=== PATIENT | male | born 1985 | race Caucasian/White ===

== ENCOUNTER 2022-11-09 07:37 | Outpatient (CLI) | payer OTHER ==
--- NOTE | 2022-11-09 11:50 | MRI Report ---
PROCEDURE: CERVICAL SPINE WO INDICATIONS: CERVICAL ROOT DISORDERS TECHNIQUE: Noncontrast sagittal T1 spin echo and T2 fast spin echo, sagittal STIR, foraminal oblique sagittal T2 fast spin echo, and axial gradient echo or T2 fast spin echo through the cervical spine. COMPARISON: None. FINDINGS: Image quality: Excellent. Alignment and Curvature: There is normal bony alignment. Bone Marrow: Marrow demonstrates normal overall signal. Spinal Cord: Visualized spinal cord has normal size and signal. No cerebellar tonsillar herniation. Paraspinous Soft Tissues: No paravertebral masses. Prevertebral soft tissues are normal in thicknes s. C2-C3: Normal in appearance. C3-C4: Normal in appearance. C4-C5: Disk height is maintained. Small 2 mm central protrusion touches the ventral cervical cord wi thout cord indentation or cord edema. Mild central and no foraminal stenosis. C5-C6: Normal in appearance. C6-C7: Normal in appearance. C7-T1: Normal in appearance. IMPRESSION: 1. Small central protrusion at C4-5 with mild central stenosis. Reviewed by: Dada Dudley MD on 11/09/2022 10:49 AM [facility] Approved by: Dada Dudley MD on 11/09/2022 10:49 AM [facility] Station ID: [id number]
== END 2022-11-09 07:38 | disposition home or self-care (01) ==
LOC: DI 07:37
DX: M50.221 Other cervical disc displacement at C4-C5 level (principal); M48.02 Spinal stenosis, cervical region

== ENCOUNTER 2022-12-13 21:54 | Emergency (ER) | payer OTHER ==
[2022-12-13 22:14] VITALS: BP 117/87
[2022-12-13 22:31] LABS: BASOPHILS % (AUTO) 0.2 %; EOSINOPHILS # (AUTO) 0.1 10^3/uL (0.0-0.7); EOSINOPHILS % (AUTO) 1.7 %; HCT - HEMATOCRIT 41.1 % (42.0-52.0); HGB - HEMOGLOBIN 13.2 g/dL (14.0-18.0); LYMPHOCYTES # (AUTO) 1.6 10^3/uL (1.5-3.5); LYMPHOCYTES % (AUTO) 26.7 %; MEAN CORPUSCULAR HEMOGLOBIN 28.5 pg (27.0-31.0); MEAN CORPUSCULAR HGB CONC 32.1 g/dL (32.0-36.0); MEAN CORPUSCULAR VOLUME 88.8 fL (80.0-94.0); MEAN PLATELET VOLUME 11.2 fL (7.4-11.4); MONOCYTES # (AUTO) 0.4 10^3/uL (0.0-1.0); MONOCYTES % (AUTO) 6.8 %; NEUTROPHILS # (AUTO) 3.9 10^3/uL (1.5-6.6); NEUTROPHILS % (AUTO) 64.4 %; PLT - PLATELET COUNT 193 10^3/uL (130-450); RED BLOOD COUNT 4.63 10^6/uL (4.70-6.10); RED CELL DISTRIBUTION WIDTH 12.6 % (12.0-15.0)
[2022-12-13 22:45] LABS: ALBUMIN 4.4 g/dL (3.2-5.5); ALBUMIN/GLOBULIN RATIO 1.5 (1.0-2.2); BILIRUBIN,TOTAL 0.5 mg/dL (0.2-1.0); CALCIUM 8.9 mg/dL (8.5-10.3); CREATININE 0.9 mg/dL (0.6-1.2); POTASSIUM 3.6 mmol/L (3.5-5.0); TOTAL PROTEIN 7.4 g/dL (6.7-8.2)
[2022-12-13 22:56] LABS: BILIRUBIN,URINE NEGATIVE (NEGATIVE); GLUCOSE, URINE (UA) NEGATIVE (NEGATIVE); KETONES,URINE (UA) NEGATIVE (NEGATIVE); LEUKOCYTE ESTERASE, URINE NEGATIVE (NEGATIVE); NITRITE,URINE NEGATIVE (NEGATIVE); OCCULT BLOOD,URINE NEGATIVE (NEGATIVE); PROTEIN,URINE NEGATIVE (NEGATIVE); UROBILINOGEN,URINE 0.2 (NORMAL) E.U./dL (NORMAL)
[2022-12-13 22:57] LABS: CLARITY,URINE CLEAR (CLEAR)
[2022-12-14] MEDS ORDERED: MECLIZINE 12.5 MG TABLET PO STA (00:01)
--- NOTE | 2022-12-14 00:07 | ED Physician Documentation ---
History of Present Illness - Stated complaint Stated Complaint: DIZZY,SWEATY,D/V - Chief complaint Chief Complaint: Cardiac - History obtained from History obtained from: Patient - Additonal information Additional information: The patient comes to the emergency department chief complaint of sudden onset of vertigo. States this started about 2 hours ago. He became very nauseated and was vomiting. He states he was walking around like a drunk person, but was not intoxicated. It was much worse if he turned his head from side to side. The patient states he is feeling quite a bit better now. This has never happened to him before. Review of Systems Constitutional: reports: Reviewed and negative Eyes: reports: Reviewed and negative Ears: reports: Reviewed and negative Nose: reports: Reviewed and negative Throat: reports: Reviewed and negative Cardiac: reports: Reviewed and negative Respiratory: reports: Reviewed and negative GI: reports: Nausea, Vomiting : reports: Reviewed and negative Skin: reports: Reviewed and negative Musculoskeletal: reports: Reviewed and negative Neurologic: reports: Reviewed and negative Psychiatric: reports: Reviewed and negative Endocrine: reports: Reviewed and negative Immunocompromised: reports: Reviewed and negative PD PAST MEDICAL HISTORY - Past Medical History Cardiovascular: None Respiratory: None Endocrine/Autoimmune: None GI: Other : None HEENT: None Psych: None Musculoskeletal: None Derm: None - Past Surgical History Past Surgical History: No General: Colonoscopy - Present Medications Home Medications: Ambulatory Orders Medication Instructions Recorded Confirmed Fluticasone [Flonase] 1 spray INH DAILY 09/19/15 09/27/15 Meclizine HCl [Motion Sickness] 25 mg PO Q6H PRN #20 tablet 12/14/22 Ondansetron Odt [Zofran] 4 mg TL Q6H PRN #10 tablet 12/14/22 - Allergies Allergies/Adverse Reactions: Allergies Allergy/AdvReac Type Severity Reaction Status Date / Time No Known Drug Allergies Allergy Verified 09/27/15 08:34 - Social History Does the pt smoke?: No Smoking Status: Never smoker PD ED PE NORMAL - Vitals Vital signs reviewed: Yes - General General: Alert and oriented X 3, No acute distress, Well developed/nourished - HEENT HEENT: Atraumatic, PERRL, EOMI, Moist mucous membranes - Neck Neck: Supple, no meningeal sign - Cardiac Cardiac: RRR, No murmur, Strong equal pulses - Respiratory Respiratory: No respiratory distress, Clear bilaterally - Abdomen Abdomen: Soft, Non tender, Non distended - Derm Derm: Normal color, Warm and dry, No rash - Extremities Extremities: No deformity - Neuro Neuro: Alert and oriented X 3 - Psych Psych: Normal mood, Normal affect Results - Vitals Vitals: Oxygen O2 Source Room air - Labs Labs: Laboratory Tests 12/13/22 12/13/22 12/13/22 22:27 22:27 22:47 WBC 6.0 RBC 4.63 L Hgb 13.2 L Hct 41.1 L MCV 88.8 MCH 28.5 MCHC 32.1 RDW 12.6 Plt Count 193 MPV 11.2 Neut # (Auto) 3.9 Lymph # (Auto) 1.6 Patrick # (Auto) 0.4 Eos # (Auto) 0.1 Baso # (Auto) 0.0 Absolute Nucleated RBC 0.00 Nucleated RBC % 0.0 Sodium 136 Potassium 3.6 Chloride 97 L Carbon Dioxide 30 Anion Gap 9.0 BUN 30 H Creatinine 0.9 Estimated GFR (MDRD) 95 Glucose 107 H Calcium 8.9 Total Bilirubin 0.5 AST 23 ALT 42 Alkaline Phosphatase 42 Total Protein 7.4 Albumin 4.4 Globulin 3.0 Albumin/Globulin Ratio 1.5 Lipase 47 Urine Color YELLOW Urine Clarity CLEAR Urine pH 6.0 Ur Specific Broussard 1.025 Urine Protein NEGATIVE Urine Glucose (UA) NEGATIVE Urine Ketones NEGATIVE Urine Occult Blood NEGATIVE Urine Nitrite NEGATIVE Urine Bilirubin NEGATIVE Urine Urobilinogen 0.2 (NORMAL) Ur Leukocyte Esterase NEGATIVE Ur Microscopic Review NOT INDICATED Urine Culture Comments NOT INDICATED PD Medical Decision Making - ED course Complexity details: reviewed results, re-evaluated patient, considered differential, d/w patient ED course: The patient was quite well-appearing in the emergency department when I evaluated him and was feeling much better. He was worked up with laboratory studies including CBC and ER abdominal panel, both of which were unremarkable. I discussed with the patient that his symptoms are most consistent with benign positional vertigo. He has responded well to meclizine and fluids and Zofran in the emergency department. I discussed symptomatic management at home with the patient, including taking meclizine as needed. I have given him prescriptions for both this and Zofran. We have discussed the usual indications for follow-up and return. Departure - Departure Disposition: Home, Self Care Clinical Impression: Benign positional vertigo Qualifiers: Laterality: unspecified laterality Qualified Code(s): H81.10 - Benign paroxysmal vertigo, unspecified ear Condition: Stable Instructions: ED BPV Vertigo Prescriptions: Meclizine HCl [Motion Sickness] 25 mg PO Q6H PRN #20 tablet PRN Reason: Vertigo Ondansetron Odt [Zofran] 4 mg TL Q6H PRN #10 tablet PRN Reason: Nausea / Vomiting Comments: Your labs look good. Your symptoms are most indicative of a peripheral source of vertigo, meaning that it is not coming from the brain itself. Usually, this indicates a problem in the inner ear. Your symptoms have mostly resolved on their own, but could recur. You have been given medication for nausea and vertigo here in the emergency department, and prescriptions for the same have been electronically transmitted to the [facility] pharmacy in [place]. Please follow-up with your primary doctor and your neurologist. Discharge Date/Time: 12/14/22 00:12
== END 2022-12-14 00:12 | disposition home or self-care (01) ==
LOC: ED 21:54
DX: H81.10 Benign paroxysmal vertigo, unspecified ear (principal)
CPT/HCPCS: 36415; 80053; 81003; 83690; 85025; 93005; 99283; A9270; 81001; 87086

== ENCOUNTER 2023-12-17 08:38 | Outpatient (CLI) | payer OTHER ==
--- NOTE | 2023-12-17 11:10 | MRI Report ---
PROCEDURE: Cervical Spine WO INDICATIONS: CERVICALGIA TECHNIQUE: Noncontrast sagittal T1 spin echo and T2 fast spin echo, sagittal STIR, foraminal oblique sagittal T2 fast spin echo, and axial gradient echo or T2 fast spin echo through the cervical spine. COMPARISON: None. FINDINGS: Image quality: Excellent. Alignment and Curvature: There is normal bony alignment. Bone Marrow: Marrow demonstrates normal overall signal. Spinal Cord: Visualized spinal cord has normal size and signal. No cerebellar tonsillar herniation. Paraspinous Soft Tissues: No paravertebral masses. Prevertebral soft tissues are normal in thicknes s. C2-C3: Normal in appearance. C3-C4: Mild disc bulge. No canal stenosis or foraminal stenosis. C4-C5: Focal central posterior disc protrusion indenting on the ventral cord in the midline. AP diam eter of the central canal is 10.5 mm. Mild to moderate left foraminal stenosis. C5-C6: Bilateral uncovertebral joint hypertrophy, right greater than left. No central canal stenosis . Moderate to severe right foraminal narrowing with a degree of right foraminal C6 nerve root impinge ment. Mild to moderate left foraminal narrowing. C6-C7: No central canal stenosis. Bilateral uncovertebral joint hypertrophy, left greater than right . Moderate to severe left foraminal narrowing with a degree of left foraminal C7 nerve root impingeme nt. C7-T1: Normal in appearance. IMPRESSION: 1. At C4-C5, a focal central posterior disc protrusion indents on the ventral cord, resulting in bord dereck canal stenosis. 2. There is moderate to severe right foraminal narrowing at C5-C6. There is moderate to severe left f oraminal narrowing at C6-C7. Reviewed by: Kasi Shaver MD on 12/17/2023 11:09 AM PST Approved by: Kasi Shaver MD on 12/17/2023 11:09 AM PST Station ID: [id number]
== END 2023-12-17 08:39 | disposition home or self-care (01) ==
LOC: DI 08:38
PROVIDERS: ATTEND Nurse Practitioner Family
DX: M50.221 Other cervical disc displacement at C4-C5 level (principal); M48.02 Spinal stenosis, cervical region